=== PATIENT | female | born 1995 | race Caucasian/White ===

== ENCOUNTER 2016-12-14 13:18 | Emergency (ER) | payer OTHER, SELFPAY ==
[~2016-12-14] VITALS: Ht 152.4 cm; Wt 77.3 kg
[2016-12-14] MEDS ORDERED: ONDANSETRON 4MG/2ML VIAL (J2405) IV ONE (13:45)
[2016-12-14] MEDS ORDERED: KETOROLAC 30 MG/ML VIAL (J1885) IV ONE (13:45)
[2016-12-14] MEDS ORDERED: NS 1,000 ML IV ONE (13:45)
[2016-12-14] MEDS ORDERED: ONDANSETRON 4 MG ORAL DISINTEGRATING TAB (S0181) PO ONE (13:45)
[2016-12-14 14:02] LABS: BASO % 0.3 % (0.0-1.0); EOS # 0.2 K/mm3 (0.0-0.50); EOS % 1.8 % (0.0-3.0); LARGE UNSTAINED CELL # 0.3 K/mm3 (0.0-0.4); LARGE UNSTAINED CELL % 2.9 % (0.0-4.0); LYMPH % 21.7 % (24.0-44.0); MEAN CORPUSCULAR HEMOGLOBIN 31.1 pg (27.0-33.0); MEAN CORPUSCULAR HGB CONC 34.3 g/dl (32.0-36.5); MEAN CORPUSCULAR VOLUME 90.6 fl (80.0-96.0); MONO # 0.7 K/mm3 (0.0-0.8); MONO % 7.6 % (0.0-5.0); NEUTROPHILS % 65.8 % (36.0-66.0); PLATELET COUNT, AUTOMATED 305 k/mm3 (150-450); RED CELL DISTRIBUTION WIDTH 12.6 % (11.5-14.5)
[2016-12-14 15:00] LABS: ALBUMIN 3.3 GM/DL (3.2-5.2); ALBUMIN/GLOBULIN RATIO 1.18 (1.00-1.93); ALKALINE PHOSPHATASE 45 U/L (45-117); ALT/SGPT 17 U/L (12-78); ANION GAP 10 MEQ/L (8-16); AST/SGOT 11 U/L (15-37); BILIRUBIN,DIRECT 0.2 MG/DL (0.0-0.2); BILIRUBIN,TOTAL 0.6 MG/DL (0.2-1.0); BLOOD UREA NITROGEN 7 MG/DL (7-18); CALCIUM LEVEL 7.6 MG/DL (8.5-10.1); CARBON DIOXIDE LEVEL 21 MEQ/L (21-32); CHLORIDE LEVEL 108 MEQ/L (98-107); CREATININE FOR GFR 0.63 MG/DL (0.55-1.02); GLOMERULAR FILTRATION RATE > 60.0 (>60); GLUCOSE, FASTING 99 MG/DL (70-105); HCG, SERUM QUANTITATIVE 377 MIU/ML; SODIUM LEVEL 139 MEQ/L (136-145); TOTAL PROTEIN 6.1 GM/DL (6.4-8.2)
[2016-12-14] MEDS ORDERED: REGL10TA6 PO (15:33)
[2016-12-14 16:27] VITALS: BP 119/82
--- NOTE | 2016-12-15 02:53 | ECGEPIP ---
Stationary ECG Study [facility] - ED Test Date: 2016-12-14 Pat Name: HANNY MARCELO Department: Room: - Gender: F [employer]: ct : 1995 Requested By: María Elena Zaidi Order Number: [id number] Reading MD: Efrain James Measurements Intervals [place] Rate: 120 P: 52 TN: 108 QRS: 89 QRSD: 81 T: 27 QT: 321 QTc: 453 Interpretive Statements SINUS TACHYCARDIA WITH SHORT TN INTERVAL LAE NO PRIORS Electronically Signed On 12-15-2016 2:52:38 EDT by Efrain James
== END 2016-12-14 16:30 | disposition home or self-care (01) ==
LOC: M ED 13:18
DX: Z32.01 Encounter for pregnancy test, result positive (principal); Z3A.00 Weeks of gestation of pregnancy not specified; O99.330 Smoking (tobacco) complicating pregnancy, unspecified trimester
CPT/HCPCS: 80048; 80076; 81001; 81025; 83690; 84702; 85025; 86850; 86900; 86901; 87088; 87186; 93005; 96361; 96374; 99284; J2405

== ENCOUNTER 2017-01-13 19:38 | Emergency (ER) | payer SELFPAY ==
[~2017-01-13] VITALS: Ht 152.4 cm; Wt 78.5 kg
[~2017-01-13 19:38] MED LIST: REGL10TA6 PO
[2017-01-13] MEDS ORDERED: PREN1CHW4 PO (19:59)
[2017-01-13 22:16] LABS: CALCIUM OXALATE CRYSTALS SMALL
[2017-01-13 22:20] LABS: BASO % 0.2 % (0.0-1.0); EOS # 0.1 K/mm3 (0.0-0.50); EOS % 0.7 % (0.0-3.0); LARGE UNSTAINED CELL # 0.1 K/mm3 (0.0-0.4); LARGE UNSTAINED CELL % 1.2 % (0.0-4.0); LYMPH # 2.5 K/mm3 (1.5-6.5); LYMPH % 22.3 % (24.0-44.0); MEAN CORPUSCULAR HEMOGLOBIN 30.2 pg (27.0-33.0); MEAN CORPUSCULAR HGB CONC 33.3 g/dl (32.0-36.5); MEAN CORPUSCULAR VOLUME 90.5 fl (80.0-96.0); MONO # 0.5 K/mm3 (0.0-0.8); MONO % 4.1 % (0.0-5.0); NEUTROPHILS % 71.5 % (36.0-66.0); PLATELET COUNT, AUTOMATED 318 k/mm3 (150-450); RED CELL DISTRIBUTION WIDTH 12.6 % (11.5-14.5); WHITE BLOOD COUNT 11.2 K/mm3 (4.0-10.0)
[2017-01-13 22:40] VITALS: BP 121/66
--- NOTE | 2017-01-13 23:00 | REPUSA ---
Clinical history: vaginal bleeding. Findings: Real-time transabdominal and transvaginal ultrasound images of the pelvis were obtained. Th ere is a single live intrauterine . The mean sac diameter is 13.5 mm. The pole measure s 55 mm. No cardiac activity is seen.. An anteverted uterus is noted, measuring 10.2 x 4.1 x 6.3 cm. The right ovary measures 3.3 x 2.4 x 2.5 cm. There is a right paraovarian cyst, measuring 4.7 x 1.8 x 3.0 cm. The left ovary measures 3.5 x 2.8 x 2.1 cm. No adnexal masses are seen. Color Doppler flow i s seen within both ovaries. There is no evidence of free fluid. Impression: 1. Single intrauterine measuring 6 weeks 2 days by ultrasound measurements. By last menstru al period, the fetus should measure 9 weeks 1 day. With the lack of cardiac activity, the findings ar e highly suspicious for demise. Follow-up with serial serum beta hCG levels is recommended for further evaluation. 2. Right paraovarian cyst. Attention on follow-up is recommended.
--- NOTE | 2017-01-14 10:04 | ED PDOC ---
Post-Departure Follow-Up radiology report faxed to Pamella Kwan MD Jan 14, 2017 10:04
== END 2017-01-14 00:15 | disposition home or self-care (01) ==
LOC: M ED 19:38
DX: O02.1 Missed abortion (principal); O99.331 Smoking (tobacco) complicating pregnancy, first trimester; Z3A.00 Weeks of gestation of pregnancy not specified; N83.291 Other ovarian cyst, right side; Z79.899 Other long term (current) drug therapy

== ENCOUNTER 2017-07-18 12:12 | Emergency (ER) | payer SELFPAY ==
[2017-07-18] MEDS: MORPHINE 4 MG/ML 1ML VIAL (J2270) IV (12:47)
[2017-07-18] MEDS: NS 1,000 ML IV (12:47)
[2017-07-18 13:48] LABS: BASO % 0.2 % (0.0-1.0); EOS # 0.1 10^3/uL (0.0-0.50); EOS % 0.8 % (0.0-3.0); HEMATOCRIT 35.1 % (36.0-47.0); HEMOGLOBIN 11.6 g/dl (12.0-16.0); IMMATURE GRANULOCYTE % 0.4 % (0-3.0); LYMPH % 15.3 % (24.0-44.0); MEAN CORPUSCULAR HEMOGLOBIN 30.1 pg (27.0-33.0); MEAN CORPUSCULAR VOLUME 90.9 fl (80.0-96.0); MONO # 0.9 10^3/uL (0.0-0.8); MONO % 6.9 % (0.0-5.0); NEUTROPHILS # 10.1 10^3/uL (1.8-7.7); NEUTROPHILS % 76.4 % (36.0-66.0); PLATELET COUNT, AUTOMATED 315 10^3/uL (150-450); RED BLOOD COUNT 3.86 10^6/uL (4.00-5.40); WHITE BLOOD COUNT 13.2 10^3/uL (4.0-10.0)
[2017-07-18 14:00] LABS: D-DIMER QUANT 1478.1 ng/ml (<500)
[2017-07-18 14:03] LABS: CONTROL LINE HCG INT CTR LINE PRESENT; HCG, SERUM QUALITATIVE NEGATIVE (NEGATIVE)
[2017-07-18 14:12] LABS: ALBUMIN 3.5 GM/DL (3.2-5.2); ALBUMIN/GLOBULIN RATIO 0.85 (1.00-1.93); ALKALINE PHOSPHATASE 59 U/L (45-117); ALT/SGPT 14 U/L (12-78); ANION GAP 6 MEQ/L (8-16); AST/SGOT 9 U/L (7-37); BILIRUBIN,DIRECT < 0.1 MG/DL (0.0-0.2); BILIRUBIN,TOTAL 0.4 MG/DL (0.2-1.0); BLOOD UREA NITROGEN 7 MG/DL (7-18); CALCIUM LEVEL 8.1 MG/DL (8.5-10.1); CARBON DIOXIDE LEVEL 26 MEQ/L (21-32); CHLORIDE LEVEL 107 MEQ/L (98-107); CREATININE FOR GFR 0.67 MG/DL (0.55-1.30); GLOMERULAR FILTRATION RATE > 60.0 (>60); GLUCOSE, FASTING 106 MG/DL (70-100); KETONE, URINE AUTO RFX NEGATIVE (NEGATIVE); LEUKOCYTE ESTERASE UR AUTO RFX NEGATIVE (NEGATIVE); LIPASE 66 U/L (73-393); MUCUS, URINE RFX SMALL (NEGATIVE); NITRITE, URINE AUTO RFX POSITIVE (NEGATIVE); POTASSIUM SERUM 3.7 MEQ/L (3.5-5.1); RBC, URINE AUTO RFX 2 /HPF (0-3); SODIUM LEVEL 139 MEQ/L (136-145); SPECIFIC GRAVITY UR AUTO RFX 1.012 (1.002-1.035); SQUAM EPITHELIAL CELL UR AURFX 4 /HPF (0-6); TOTAL PROTEIN 7.6 GM/DL (6.4-8.2); WBC, URINE AUTO RFX 1 /HPF (0-3)
[2017-07-18] MEDS ORDERED: ISOVUE-370 76% 100ML VIAL (Q9967) As Ordered (15:01)
[2017-07-18 17:49] LABS: CHLAMYDIA DNA AMPLIFICATION POSITIVE (NEGATIVE); GC DNA AMPLIFICATION NEGATIVE (NEGATIVE)
[2017-07-18] MEDS ORDERED: LIDOCAINE 1% MDV 20ML VIAL As Ordered (19:06)
[2017-07-18] MEDS: DOXYCYCLINE HYCLATE 100 MG TAB PO (19:09)
[2017-07-18] MEDS: NITROFURANTOIN (MACROBID) 100 MG CAP PO (19:09)
[2017-07-18] MEDS: cefTRIAXone SOD 250 MG VIAL (J0696) IM (19:09)
== END 2017-07-18 19:41 | disposition home or self-care (01) ==
LOC: M ED 12:12
DX: N39.0 Urinary tract infection, site not specified (principal); A74.81 Chlamydial peritonitis; N70.11 Chronic salpingitis; F17.210 Nicotine dependence, cigarettes, uncomplicated; Z98.890 Other specified postprocedural states
CPT/HCPCS: J2270

== ENCOUNTER 2017-12-11 13:35 | Emergency (ER) | payer SELFPAY ==
[2017-12-11] MEDS: AUGMENTIN 875 MG TAB PO (16:07)
[2017-12-11] MEDS: NORCO, ANEXSIA 5/325MG TABLET (HYDROcodone/ACETAMINOPHEN) PO (16:07)
== END 2017-12-11 16:13 | disposition home or self-care (01) ==
LOC: M ED 13:35
DX: K02.9 Dental caries, unspecified (principal); K04.7 Periapical abscess without sinus
CPT/HCPCS: 99283

== ENCOUNTER 2018-10-08 10:40 | Emergency (ER) | payer SELFPAY ==
[~2018-10-08] VITALS: Ht 152.4 cm; Wt 70.5 kg
[2018-10-08 10:40] VITALS: BP 126/70
[~2018-10-08 10:40] MED LIST changes: +AUGM875T28 PO; +DOXY100C37 PO; +MACR100C43 PO; +NORC1TAB7 PO; +PREN1CHW4 PO
[2018-10-08] MEDS ORDERED: BACT800T5 PO (12:47)
== END 2018-10-08 12:57 | disposition home or self-care (01) ==
LOC: M ED 10:40
DX: L03.311 Cellulitis of abdominal wall (principal); F41.9 Anxiety disorder, unspecified; F32.9 Major depressive disorder, single episode, unspecified; F17.210 Nicotine dependence, cigarettes, uncomplicated

== ENCOUNTER 2018-10-11 16:30 | Emergency (ER) | payer SELFPAY ==
[~2018-10-11] VITALS: Ht 152.4 cm; Wt 68.6 kg
[~2018-10-11 16:30] MED LIST changes: +BACT800T5 PO
[2018-10-11 17:51] LABS: BASO # 0.1 10^3/uL (0.0-0.2); BASO % 0.2 % (0.0-1.0); EOS # 0.1 10^3/uL (0.0-0.50); EOS % 0.4 % (0.0-3.0); HEMATOCRIT 38.1 % (36.0-47.0); LYMPH # 2.2 10^3/uL (1.5-6.5); LYMPH % 10.2 % (24.0-44.0); MEAN CORPUSCULAR HEMOGLOBIN 30.1 pg (27.0-33.0); MEAN CORPUSCULAR HGB CONC 34.1 g/dl (32.0-36.5); MEAN CORPUSCULAR VOLUME 88.2 fl (80.0-96.0); MONO % 9.9 % (0.0-5.0); NEUTROPHILS % 78.9 % (36.0-66.0); PLATELET COUNT, AUTOMATED 292 10^3/uL (150-450); RED BLOOD COUNT 4.32 10^6/uL (4.00-5.40); WHITE BLOOD COUNT 21.6 10^3/uL (4.0-10.0)
[2018-10-11 18:02] LABS: INR 1.08; PARTIAL THROMBOPLASTIN TIME 27.7 SECONDS (25.4-37.6); PROTHROMBIN TIME 14.1 SECONDS (12.1-14.4)
[2018-10-11 18:21] LABS: ALBUMIN 3.6 GM/DL (3.2-5.2); ALT/SGPT 18 U/L (12-78); AMYLASE 21 U/L (25-115); BILIRUBIN,DIRECT 0.2 MG/DL (0.0-0.2); BILIRUBIN,TOTAL 0.7 MG/DL (0.2-1.0); BLOOD UREA NITROGEN 11 MG/DL (7-18); CALCIUM LEVEL 8.6 MG/DL (8.5-10.1); CARBON DIOXIDE LEVEL 25 MEQ/L (21-32); CHLORIDE LEVEL 101 MEQ/L (98-107); CK-MB VALUE MASS < 1.0 NG/ML (<3.6); CPK CREATINE PHOSPHOKINASE 100 U/L (26-192); CREATININE FOR GFR 0.68 MG/DL (0.55-1.30); GLOMERULAR FILTRATION RATE > 60.0 (>60); GLUCOSE, FASTING 87 MG/DL (70-100); POTASSIUM SERUM 3.4 MEQ/L (3.5-5.1); SODIUM LEVEL 136 MEQ/L (136-145); TROPONIN I < 0.02 NG/ML (< 0.10)
[2018-10-11 18:26] LABS: MONO # 2.1 10^3/uL (0.0-0.8)
[2018-10-11 18:38] LABS: HCG, SERUM QUALITATIVE NEGATIVE (NEGATIVE)
[2018-10-11] MEDS ORDERED: ISOVUE-370 76% 100ML VIAL (Q9967) As Ordered ONE (19:02)
--- NOTE | 2018-10-11 19:55 | REP ---
Clinical: Periumbilical pain. Technique: Slow contrast enhanced images from the lung bases to the pubic symphysis with coronal and sagittal re-formations using 100 ml Isovue 370 intravenous contrast material. Comparison: 07/18/2017. Findings: Multiloculated rim enhancing periumbilical fluid collections compatible with abscess are identified with the largest component measuring approximately 4 cm maximal diameter (axial images 60-82). Findings do not appear to extend into the peritoneal cavity. Liver, spleen, pancreas, gallbladder, bilateral adrenal glands and kidneys are normal. The enteric system is without obstruction or acute inflammatory process. Pelvis demonstrates normal bladder and age-appropriate uterus/left adnexa. There is a multiloculated complex right adnexal cystic mass measuring 6.2 cm maximal diameter. No ascites. No free air. No adenopathy. Abdominal aorta and vasculature normal. Osseous structures are intact and normal. Lung bases are clear. Impression: 1. Complex multiloculated periumbilical abscess collection in the subcutaneous tissues with the largest component measuring 4 cm maximal diameter. 2. 6.2 cm complex multiloculated right adnexal cystic mass appears essentially unchanged compared to 07/18/2017 and ultrasound reported at that time described severe right hydrosalpinx. Correlation and follow up may be warranted. Electronically Signed by Willy Martino MD 10/11/2018 07:46 P
[2018-10-11] MEDS ORDERED: LIDOCAINE W/EPINEPHRINE 1% 20ML VIAL SC ONE (21:15)
--- NOTE | 2018-10-11 22:02 | REPVR ---
EXAM: US Pelvis Complete, Transabdominal EXAM DATE/TIME: 10/11/2018 8:43 PM CLINICAL HISTORY: 23 years old, female; Abnormal findings; Abnormal imaging test; Additional info: Eval right ovarian mass from CT TECHNIQUE: Imaging protocol: Real-time transabdominal pelvic ultrasound with image documentation. Complete exam. COMPARISON: US PELVIC NON-OB COMPLETE 07/18/2017 5:31 PM FINDINGS: Uterus/cervix: The uterus measures 7.1 cm in its cephalocaudad dimension and 3.6 x 5.0 cm in its AP and lateral dimensions transabdominal. The uterus measures 6.9 cm in its cephalocaudad dimension and 3.2 x 5.1 cm in its AP and lateral dimensions. The endometrium measures 1.0 cm with minimal calcifications. Right adnexa: The right ovary measures 3.9 x 6.3 x 4.6 cm and contains 2 complex cysts measuring 3.2 x 3.7 x 3.9 cm and 2.2 x 1.9 x 4.2 cm. Blood flow is noted about the periphery of the right ovary. Left adnexa: The left ovary measures 2.2 x 2.9 x 2.1 cm and demonstrate blood flow. Free fluid: None. Bladder: The urinary bladder is within normal limits. IMPRESSION: 1. 2 right ovarian complex cysts consistent with hemorrhagic cysts. 2. Otherwise negative pelvic sonogram. Electronically signed by: Nathan Maciel On 10/11/2018 22:02:13 PM
[2018-10-11] MEDS ORDERED: cefTRIAXone SOD 1 GM in D5W MINI-BAG PLUS 50 ML IV ONE (22:30)
[2018-10-11 22:53] VITALS: BP 112/68
[2018-10-11] MEDS ORDERED: OXYCODONE/APAP 5MG/325MG(BULK FOR ED) 1 TABLET PO ONE (23:30)
[2018-10-11 23:46] LABS: APPEARANCE, URINE CLEAR (CLEAR); BACTERIA, URINE AUTO NEGATIVE (NEGATIVE); BILIRUBIN, URINE AUTO NEGATIVE (NEGATIVE); BLOOD, URINE BLOOD NEGATIVE (NEGATIVE); COLOR, URINE YELLOW (YELLOW); GLUCOSE, URINE (UA) AUTO NEGATIVE (NEGATIVE); KETONE, URINE AUTO 2+ mg/dL (NEGATIVE); LEUKOCYTE ESTERASE, URINE AUTO NEGATIVE (NEGATIVE); MUCUS, URINE SMALL (NEGATIVE); NITRITE, URINE AUTO NEGATIVE (NEGATIVE); PROTEIN, URINE AUTO NEGATIVE (NEGATIVE); RBC, URINE AUTO 2 /HPF (0-3); SQUAMOUS EPITHELIAL CELL UR AU 8 /HPF (0-6); WBC, URINE AUTO 1 /HPF (0-3)
[2018-10-11 23:48] LABS: SPECIFIC GRAVITY URINE AUTO >1.060 (1.002-1.035)
--- NOTE | 2018-10-14 16:37 | ED PDOC ---
Post-Departure Follow-Up james aguilar and mauricio faxed formal report of pelvic us and ct abd/p for fu María Elena Droan MD October 14, 2018 16:37
== END 2018-10-11 23:29 | disposition home or self-care (01) ==
LOC: M ED 16:30
DX: L02.211 Cutaneous abscess of abdominal wall (principal); N83.201 Unspecified ovarian cyst, right side; F41.9 Anxiety disorder, unspecified; F32.9 Major depressive disorder, single episode, unspecified; Z72.0 Tobacco use
CPT/HCPCS: 36415; 74177; 76830; 76856; 80048; 80076; 81001; 82150; 82550; 82553; 83605; 84484; 84703; 85025; 85610; 85730; 86140; 87040; 87070; 87077; 87186; 87205; 93976; 96374; 99284; J0696; Q9967

== ENCOUNTER 2018-10-12 22:48 | Emergency (ER) | payer SELFPAY ==
[~2018-10-12] VITALS: Ht 152.4 cm; Wt 68.6 kg
[2018-10-13] MEDS ORDERED: LIDOCAINE 1% SDV INJ 30 ML VIAL SC SCH (01:15)
[2018-10-13] MEDS ORDERED: cefTRIAXone SOD 2 GM in D5W MINI-BAG PLUS 50 ML IV ONE (01:15)
[2018-10-13] MEDS ORDERED: PERCOCET 5MG/325MG TAB PO ONE (01:15)
[2018-10-13] MEDS ORDERED: PERC5TAB12 PO (02:19)
[2018-10-13 02:28] VITALS: BP 113/74
== END 2018-10-13 02:35 | disposition home or self-care (01) ==
LOC: M ED 22:48
DX: L02.211 Cutaneous abscess of abdominal wall (principal); Z98.890 Other specified postprocedural states; F17.210 Nicotine dependence, cigarettes, uncomplicated; Z79.2 Long term (current) use of antibiotics
CPT/HCPCS: 96365; 99284; J0696

== ENCOUNTER 2019-05-17 14:31 | Emergency (ER) | payer MEDICAID, OTHER, SELFPAY ==
[~2019-05-17] VITALS: Ht 152.4 cm; Wt 73.1 kg
[~2019-05-17 14:31] MED LIST changes: +PERC5TAB12 PO
[2019-05-17] MEDS ORDERED: ONDANSETRON 4MG/2ML VIAL (J2405) IV ONE (16:30)
[2019-05-17] MEDS ORDERED: NS 1,000 ML IV ONE (16:30)
[2019-05-17] MEDS ORDERED: ACETAMINOPHEN 325 MG TAB PO ONE (17:00)
[2019-05-17 17:05] LABS: BASO % 0.5 % (0.0-1.0); HEMATOCRIT 48.4 % (36.0-47.0); LYMPH # 1.2 10^3/uL (1.5-5.0); MEAN CORPUSCULAR HEMOGLOBIN 30.1 pg (27.0-33.0); MEAN CORPUSCULAR HGB CONC 33.1 g/dl (32.0-36.5); MEAN CORPUSCULAR VOLUME 91.1 fl (80.0-96.0); MONO # 0.9 10^3/uL (0.0-0.8); NEUTROPHILS # 4.2 10^3/uL (1.5-8.5); PLATELET COUNT, AUTOMATED 257 10^3/uL (150-450); RED BLOOD COUNT 5.31 10^6/uL (4.00-5.40); WHITE BLOOD COUNT 6.4 10^3/uL (4.0-10.0)
[2019-05-17 17:30] LABS: ALBUMIN 4.5 GM/DL (3.2-5.2); ALT/SGPT 21 U/L (12-78); BILIRUBIN,DIRECT < 0.1 MG/DL (0.0-0.2); BILIRUBIN,TOTAL 0.3 MG/DL (0.2-1.0); LIPASE 77 U/L (73-393)
[2019-05-17 18:29] LABS: INFLUENZA A AMPLIFICATION NEGATIVE (NEGATIVE); INFLUENZA B AMPLIFICATION POSITIVE (NEGATIVE)
[2019-05-17 19:43] VITALS: BP 110/63
--- NOTE | 2019-05-17 19:43 | REP ---
Clinical: Wheezing . Comparison: None . Technique: PA and lateral. Findings: The mediastinum and cardiac silhouette are normal. The lung morales are clear and without acute consolidation, effusion, or pneumothorax. The skeletal structures are intact and normal. Impression: 1. No acute cardiopulmonary process. Electronically Signed by Willy Martino MD 05/17/2019 07:35 P
[2019-05-17 19:53] LABS: CHLAMYDIA DNA AMPLIFICATION NEGATIVE (NEGATIVE); GC DNA AMPLIFICATION NEGATIVE (NEGATIVE)
[2019-05-19] MEDS ORDERED: AMOX500T PO (08:23)
[2019-05-19] MEDS ORDERED: FLAG500T PO (08:38)
== END 2019-05-17 20:24 | disposition home or self-care (01) ==
LOC: M ED 14:31
DX: J11.1 Influenza due to unidentified influenza virus with other respiratory manifestations (principal); F17.210 Nicotine dependence, cigarettes, uncomplicated; Z87.440 Personal history of urinary (tract) infections
CPT/HCPCS: 71046; 80047; 80076; 81001; 83605; 83690; 84702; 85025; 87210; 87491; 87591; 87631; 87880; 96361; 96374; 99284; J2405

== ENCOUNTER → 2024-07-29 | Outpatient (REF) | payer OTHER ==
[~2024-07-29] MED LIST changes: +AMOX500T PO; +DOXY-441 PO; -DOXY100C37 PO; +FLAG500T PO
== END ==
LOC: M LAB REF 15:09
PROVIDERS: ATTEND Physician Assistant
DX: B34.9 Viral infection, unspecified (principal)

== ENCOUNTER 2024-12-14 12:30 | Day surgery (SDC) | payer OTHER ==
[~2024-12-14] VITALS: Ht 152.4 cm; Wt 83.8 kg
[2024-12-14] MEDS ORDERED: LAMI25TA (12:36)
[2024-12-14] MEDS ORDERED: MIRT1TAB (12:36)
[2024-12-14 14:47] LABS: URINE PREG TEST NEGATIVE (NEGATIVE)
[2024-12-14 14:50] LABS: BASO # 0.0 10^3/uL (0.0-0.2); BASO % 0.2 % (0.0-1.0); EOS # 0.0 10^3/uL (0.0-0.5); EOS % 0.1 % (0.0-3.0); LYMPH # 2.5 10^3/uL (1.5-5.0); LYMPH % 18.1 % (24.0-44.0); MONO # 1.0 10^3/uL (0.0-0.8); MONO % 6.8 % (2.0-8.0); NEUTROPHILS # 10.4 10^3/uL (1.5-8.5); NEUTROPHILS % 74.4 % (36.0-66.0); PLATELET COUNT, AUTOMATED 361 10^3/uL (150-450)
[2024-12-14] MEDS: LIDOCAINE 1% MDV 20 ML VIAL SC ONE (15:00)
[2024-12-14] MEDS ORDERED: MIDAZOLAM INJ 2 MG/2 ML VIAL As Ordered ONE (16:55)
[2024-12-14] MEDS ORDERED: KETOROLAC 30 MG/ML 1 ML VIAL As Ordered ONE (16:56)
[2024-12-14] MEDS ORDERED: dexAMETHasone 4 MG/ML 1 ML VIAL As Ordered ONE (16:56)
[2024-12-14] MEDS: ESTROGENS VAGINAL CREAM 30 GM As Ordered ONE (16:56)
[2024-12-14] MEDS: SILVER NITRATE APPLICATOR (1 = QTY 10) As Ordered ONE (16:56)
[2024-12-14] MEDS ORDERED: ONDANSETRON 4MG 2ML VIAL As Ordered ONE (16:56)
[2024-12-14] MEDS ORDERED: ACETAMINOPHEN 1000MG/100ML IV BAG As Ordered ONE (16:56)
[2024-12-14] MEDS ORDERED: LIDOCAINE 2% 100 MG/5 ML SDV (FOR ANES.) As Ordered ONE (16:57)
[2024-12-14] MEDS ORDERED: HYDROMORPHONE HCL 0.5 MG/0.5 ML SYRINGE IV PRN (17:45)
[2024-12-14] MEDS ORDERED: LR 1,000 ML IV SCH (17:45)
[2024-12-14] MEDS ORDERED: ONDANSETRON 4MG 2ML VIAL IV PRN (17:45)
[2024-12-14] MEDS ORDERED: DIBUCAINE 1% OINTMENT 30 GM TOP PRN (18:00)
[2024-12-14 18:38] VITALS: BP 102/65; TEMP 98; O2SAT 100
== END 2024-12-14 18:42 | disposition home or self-care (01) ==
LOC: M ED 12:30 → M SDC 16:00
PROVIDERS: ATTEND Obstetrics & Gynecology
DX: N76.4 Abscess of vulva (principal)
CPT/HCPCS: 56405; 84703; 85025; 87070; 87075; 87077; 87186; 87205; 99284; C1727; J0131; J0665; J0690; J1100; J1885; J2250; J2405; J3010